=== PATIENT | female | born 1975 | race Caucasian/White ===

== ENCOUNTER 2017-10-15 15:00 | Emergency (ER) | payer OTHER ==
[2017-10-15 17:10] LABS: AUTOMATED NEUTROPHIL # 6.3 TH/MM3 (1.8-7.7); BASOPHIL % 0.3 % (0.0-2.0); EOSINOPHIL % 0.4 % (0.0-4.0); HEMATOCRIT 41.8 % (35.0-46.0); HEMO FLAGS DIFF FINAL; HEMOGLOBIN 14.2 GM/DL (11.6-15.3); LYMPH % 24.2 % (9.0-44.0); LYMPHOCYTE # 2.3 TH/MM3 (1.0-4.8); MEAN CELL VOLUME 91.8 FL (80.0-100.0); MEAN CORPUSCULAR HEMOGLOBIN 31.3 PG (27.0-34.0); MEAN CORPUSCULAR HGB CONC 34.1 % (32.0-36.0); MEAN PLATELET VOLUME 8.1 FL (7.0-11.0); MONO % 7.8 % (0.0-8.0); MONOCYTE # 0.7 TH/MM3 (0-0.9); NEUT % 67.3 % (16.0-70.0); PLATELET COUNT 287 TH/MM3 (150-450); RED BLOOD COUNT 4.55 MIL/MM3 (4.00-5.30); RED CELL DISTRIBUTION WIDTH 13.1 % (11.6-17.2); WHITE BLOOD COUNT 9.4 TH/MM3 (4.0-11.0)
[2017-10-15 17:17] LABS: BACTERIA, URINE MOD /hpf; BILIRUBIN, URINE NEG (NEG); BLOOD, URINE NEG (NEG); COMMENT (UR) CULTURE INDICATED; CULTURE IF INDICATED CULTURE INDICATED; GLUCOSE,URINE 150 mg/dL (NEG); KETONE, URINE NEG (NEG); NITRITE,URINE NEG (NEG); SQUAMOUS EPITHELIAL CELL URINE 1 /hpf (0-5); URINE COLOR LIGHT-YELLOW (YELLW/STRAW); URINE LEUKOCYTE ESTERASE NEG (NEG)
[2017-10-15 17:35] LABS: ALBUMIN 4.1 GM/DL (3.4-5.0); ANION GAP 7 MEQ/L (5-15); AST (GOT) 12 U/L (15-37); BICARBONATE 26.4 MEQ/L (21.0-32.0); BLOOD UREA NITROGEN 6 MG/DL (7-18); CALCIUM 9.4 MG/DL (8.5-10.1); CHLORIDE 103 MEQ/L (98-107); CREATININE 0.69 MG/DL (0.50-1.00); GLOMERULAR FILTRATION RATE 94 ML/MIN (>89); GLUCOSE,RANDOM 75 MG/DL (74-106); POTASSIUM 3.5 MEQ/L (3.5-5.1); SODIUM (NA) 136 MEQ/L (136-145)
[2017-10-15 17:36] LABS: ALT (GPT) 25 U/L (10-53)
[2017-10-15 17:53] LABS: ALKALINE PHOSPHATASE 102 U/L (45-117); BETA HCG QUANT 15566 MIU/ML (0-5); TOTAL BILIRUBIN ADULT 0.3 MG/DL (0.2-1.0); TOTAL PROTEIN 8.2 GM/DL (6.4-8.2)
[2017-10-15] MEDS: ACETAMINOPHEN 325 MG TAB PO (22:15)
[2017-10-15] MEDS: NITROFURANTOIN MONOHYD MACROCR 100 MG CAP PO (22:30)
[2017-10-16 01:22] LABS: CHLAMYDIA PCR NOT DETECTED (NOT DETECT); NEISSERIA PCR NOT DETECTED (NOT DETECT)
== END 2017-10-16 02:17 | disposition home or self-care (01) ==
LOC: NEPD 10-16 02:17
DX: O23.41 Unspecified infection of urinary tract in pregnancy, first trimester (principal); O26.891 Other specified pregnancy related conditions, first trimester; M54.5 Low back pain; V49.60XA Unspecified car occupant injured in collision with unspecified motor vehicles in traffic accident, initial encounter; Y92.410 Unspecified street and highway as the place of occurrence of the external cause; Z3A.01 Less than 8 weeks gestation of pregnancy
CPT/HCPCS: 76801; 80053; 81001; 84702; 84703; 85025; 87086; 87210; 87491; 87591; 99284-25

== ENCOUNTER 2017-11-10 17:36 | Emergency (ER) | payer MEDICAID ==
[~2017-11-10] VITALS: Ht 170.2 cm; Wt 75.0 kg
[~2017-11-10 17:36] MED LIST: MACR100C2 PO
[2017-11-10 17:38] VITALS: BP 147/80; PULSE 97; RESP 14; TEMP 97.9; O2SAT 98
--- NOTE | 2017-11-10 19:20 | PD ---
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 Patient reports that started this morning as light brown spotting, progressively getting worse where she is currently passing clots. Patient states that she is 9 weeks . She is . For this is not received any care yet. She reports cramping in her lower abdomen that is consistent with menstrual cramps. She also reports urinary frequency. She denies any vaginal discharge, nausea, vomiting, abdominal pain, back pain. Symptom onset was gradual, there are no alleviating factors, there are no aggravating factors. The pain is intermittent in nature again consistent with a menstrual cycle. Patient is Amharic speaking, she has a female family member with her. They declined formal interpretation services. [facility] Past Medical History Medical History: Denies Significant Hx ?: LMP: 09/04/18 : 4 Para: 3 Past Surgical History Section: No Social History Alcohol Use: No Tobacco Use: No Substance Use: No Allergies-Medications (Allergen,Severity, Reaction): Coded Allergies: No Known Allergies (Unverified , 10/15/17) Reported Meds & Prescriptions Reported Meds & Active Scripts Active Review of Systems Except as stated in HPI: all other systems reviewed are Neg Genitourinary: Positive: Frequency, Pelvic Pain (cramping), Vaginal Bleeding Physical Exam Narrative GENERAL: Well-developed, well-nourished, alert female. Presenting in no acute distress. SKIN: Warm and dry. HEAD: Atraumatic. Normocephalic. EYES: Pupils equal and round. No scleral icterus. No injection or drainage. ENT: No nasal bleeding or discharge. Mucous membranes pink and moist. NECK: Trachea midline. No JVD. CARDIOVASCULAR: Regular rate and rhythm. RESPIRATORY: No accessory muscle use. Clear to auscultation. Breath sounds equal bilaterally. GASTROINTESTINAL: Abdomen soft, non-tender, nondistended. Hepatic and splenic margins not palpable. GENITOURINARY: Normal external genitalia without lesions or erythema. Vaginal vault with blood, no drainage. Cervical os appears closed, there is bloody drainage . No cervical motion tenderness. Uterus nontender and nonenlarged. Bilateral adnexa nontender without masses. MUSCULOSKELETAL: Extremities without clubbing, cyanosis, or edema. No obvious deformities. NEUROLOGICAL: Awake and alert. No obvious cranial nerve deficits. Motor grossly within normal limits. Five out of 5 muscle strength in the arms and legs. Normal speech. PSYCHIATRIC: Appropriate mood and affect; insight and judgment normal. Data Data Last Documented VS Vital Signs Date Time Temp Pulse Resp B/P (MAP) Pulse Ox O2 Delivery O2 Flow Rate FiO2 11/10/17 22:25 11/10/17 18:10 68 18 11/10/17 17:38 97.9 98 Orders Orders Beta Hcg (Quant/Titer) (11/10/17 18:49) Complete Blood Count With Diff (11/10/17 18:49) Comprehensive Metabolic Panel (11/10/17 18:49) Gc And Chlamydia Pcr (11/10/17 18:49) Complete Rh (11/10/17 18:49) Us Pelvis (Ques Pr/Ect)W Trans (11/10/17 ) Wet Prep Profile (11/10/17 18:49) Urinalysis - C+S If Indicated (11/10/17 18:49) Ed Discharge Order (11/10/17 22:16) Mandatory Outpatient Referral (11/10/17 22:25) Labs Laboratory Tests Test 11/10/17 19:15 White Blood Count 8.3 TH/MM3 Red Blood Count 4.07 MIL/MM3 Hemoglobin 12.8 GM/DL Hematocrit 36.8 % Mean Corpuscular Volume 90.6 FL Mean Corpuscular Hemoglobin 31.5 PG Mean Corpuscular Hemoglobin Concent 34.8 % Red Cell Distribution Width 12.7 % Platelet Count 278 TH/MM3 Mean Platelet Volume 7.7 FL Neutrophils (%) (Auto) 63.7 % Lymphocytes (%) (Auto) 27.4 % Monocytes (%) (Auto) 7.3 % Eosinophils (%) (Auto) 1.2 % Basophils (%) (Auto) 0.4 % Neutrophils # (Auto) 5.3 TH/MM3 Lymphocytes # (Auto) 2.3 TH/MM3 Monocytes # (Auto) 0.6 TH/MM3 Eosinophils # (Auto) 0.1 TH/MM3 Basophils # (Auto) 0.0 TH/MM3 CBC Comment DIFF FINAL Differential Comment Urine Color LIGHT-YELLOW Urine Turbidity CLEAR Urine pH 6.5 Urine Specific [place] 1.005 Urine Protein NEG mg/dL Urine Glucose (UA) NEG mg/dL Urine Ketones NEG mg/dL Urine Occult Blood MOD Urine Nitrite NEG Urine Bilirubin NEG Urine Urobilinogen LESS THAN 2.0 MG/DL Urine Leukocyte Esterase NEG Urine RBC 1 /hpf Urine WBC 1 /hpf Urine Squamous Epithelial Cells 3 /hpf Urine Bacteria OCC /hpf Microscopic Urinalysis Comment CULT NOT INDICATED Clue Cells (Wet Prep) NONE SEEN Vaginal Trichomonas (Wet Prep) NONE SEEN Vaginal Yeast (Wet Prep) NONE SEEN Blood Urea Nitrogen 13 MG/DL Creatinine 0.66 MG/DL Random Glucose 101 MG/DL Total Protein 7.0 GM/DL Albumin 3.4 GM/DL Calcium Level 8.9 MG/DL Alkaline Phosphatase 92 U/L Aspartate Amino Transf (AST/SGOT) 14 U/L Alanine Aminotransferase (ALT/SGPT) 22 U/L Total Bilirubin 0.1 MG/DL Sodium Level 138 MEQ/L Potassium Level 3.6 MEQ/L Chloride Level 105 MEQ/L Carbon Dioxide Level 27.0 MEQ/L Anion Gap 6 MEQ/L Estimat Glomerular Filtration Rate 99 ML/MIN Human Chorionic Gonadotropin, Quant 4881 MIU/ML MDM Medical Decision Making Medical Screen Exam Complete: Yes Emergency Medical Condition: Yes Interpretation(s) Laboratory Tests Test 11/10/17 19:15 White Blood Count 8.3 TH/MM3 Red Blood Count 4.07 MIL/MM3 Hemoglobin 12.8 GM/DL Hematocrit 36.8 % Mean Corpuscular Volume 90.6 FL Mean Corpuscular Hemoglobin 31.5 PG Mean Corpuscular Hemoglobin Concent 34.8 % Red Cell Distribution Width 12.7 % Platelet Count 278 TH/MM3 Mean Platelet Volume 7.7 FL Neutrophils (%) (Auto) 63.7 % Lymphocytes (%) (Auto) 27.4 % Monocytes (%) (Auto) 7.3 % Eosinophils (%) (Auto) 1.2 % Basophils (%) (Auto) 0.4 % Neutrophils # (Auto) 5.3 TH/MM3 Lymphocytes # (Auto) 2.3 TH/MM3 Monocytes # (Auto) 0.6 TH/MM3 Eosinophils # (Auto) 0.1 TH/MM3 Basophils # (Auto) 0.0 TH/MM3 CBC Comment DIFF FINAL Differential Comment Urine Color LIGHT-YELLOW Urine Turbidity CLEAR Urine pH 6.5 Urine Specific [place] 1.005 Urine Protein NEG mg/dL Urine Glucose (UA) NEG mg/dL Urine Ketones NEG mg/dL Urine Occult Blood MOD Urine Nitrite NEG Urine Bilirubin NEG Urine Urobilinogen LESS THAN 2.0 MG/DL Urine Leukocyte Esterase NEG Urine RBC 1 /hpf Urine WBC 1 /hpf Urine Squamous Epithelial Cells 3 /hpf Urine Bacteria OCC /hpf Microscopic Urinalysis Comment CULT NOT INDICATED Clue Cells (Wet Prep) NONE SEEN Vaginal Trichomonas (Wet Prep) NONE SEEN Vaginal Yeast (Wet Prep) NONE SEEN Blood Urea Nitrogen 13 MG/DL Creatinine 0.66 MG/DL Random Glucose 101 MG/DL Total Protein 7.0 GM/DL Albumin 3.4 GM/DL Calcium Level 8.9 MG/DL Alkaline Phosphatase 92 U/L Aspartate Amino Transf (AST/SGOT) 14 U/L Alanine Aminotransferase (ALT/SGPT) 22 U/L Total Bilirubin 0.1 MG/DL Sodium Level 138 MEQ/L Potassium Level 3.6 MEQ/L Chloride Level 105 MEQ/L Carbon Dioxide Level 27.0 MEQ/L Anion Gap 6 MEQ/L Estimat Glomerular Filtration Rate 99 ML/MIN Human Chorionic Gonadotropin, Quant 4881 MIU/ML Vital Signs Date Time Temp Pulse Resp B/P (MAP) Pulse Ox O2 Delivery O2 Flow Rate FiO2 11/10/17 18:10 68 18 11/10/17 17:38 97.9 97 14 147/80 (102) 98 Differential Diagnosis Threatened versus miscarriage versus UTI versus STD versus ectopic versus other Narrative Course Patient is a 42-year-old female presenting for evaluation of vaginal bleeding during . Urine test is positive, patient's vital signs are stable. Labs and ultrasound ordered and pending. Labs reviewed, previous hCG level on 10/15/17 was 8[address]70, today is 4881 CBC is unremarkable Urinalysis shows moderate occult blood, not consistent with urinary tract infection likely vaginal source. Wet prep is negative GC/chlamydia is pending the patient was negative in October. Ultrasound shows demise, when compared to the ultrasound in October 2017, which showed an intrauterine of 5 weeks, 5 days with heart rate at 106 beats. Again the previous ultrasound study showed a heartbeat, this ultrasound shows intrauterine gestational sac and a pole is present there is no evidence of a heartbeat. He also notes a cyst on the left ovary measuring 3.1 cm and a separate area measuring 2.7 cm. Patient was advised on findings. Discussed with my attending physician. Patient is to follow-up with applications administrator. Additionally she can return to emergency department for any new or worsening symptoms. Patient is stable for discharge. Mandatory referral for gynecology has been made. Patient's questions were answered via daughter's interpretation. Again they declined formal interpretation services. They were advised to return to emergency department immediately for any new or worsening symptoms. Diagnosis Primary Impression: Incomplete miscarriage Referrals: [facility] [employer] Patient Instructions: General Instructions, Miscarriage (ED) Additional Instructions: Follow up with your applications administrator Return to emergency department immediately for any new or worsening symptoms Med/Other Pt SpecificInfo: No Change to Meds Disposition: 01 DISCHARGE HOME Condition: Stable Sonia Escobar Nov 10, 2017 19:20
[2017-11-10 19:32] LABS: AUTOMATED NEUTROPHIL # 5.3 TH/MM3 (1.8-7.7); BASOPHIL % 0.4 % (0.0-2.0); EOSINOPHIL # 0.1 TH/MM3 (0-0.4); EOSINOPHIL % 1.2 % (0.0-4.0); HEMATOCRIT 36.8 % (35.0-46.0); HEMOGLOBIN 12.8 GM/DL (11.6-15.3); LYMPH % 27.4 % (9.0-44.0); LYMPHOCYTE # 2.3 TH/MM3 (1.0-4.8); MEAN CELL VOLUME 90.6 FL (80.0-100.0); MEAN CORPUSCULAR HEMOGLOBIN 31.5 PG (27.0-34.0); MEAN CORPUSCULAR HGB CONC 34.8 % (32.0-36.0); MEAN PLATELET VOLUME 7.7 FL (7.0-11.0); MONO % 7.3 % (0.0-8.0); MONOCYTE # 0.6 TH/MM3 (0-0.9); NEUT % 63.7 % (16.0-70.0); PLATELET COUNT 278 TH/MM3 (150-450); RED BLOOD COUNT 4.07 MIL/MM3 (4.00-5.30); RED CELL DISTRIBUTION WIDTH 12.7 % (11.6-17.2); WHITE BLOOD COUNT 8.3 TH/MM3 (4.0-11.0)
[2017-11-10 19:40] LABS: ALBUMIN 3.4 GM/DL (3.4-5.0); AST (GOT) 14 U/L (15-37); BLOOD UREA NITROGEN 13 MG/DL (7-18); CALCIUM 8.9 MG/DL (8.5-10.1); CHLORIDE 105 MEQ/L (98-107); CREATININE 0.66 MG/DL (0.50-1.00); GLOMERULAR FILTRATION RATE 99 ML/MIN (>89); GLUCOSE,RANDOM 101 MG/DL (74-106); SODIUM (NA) 138 MEQ/L (136-145)
[2017-11-10 19:41] LABS: ALT (GPT) 22 U/L (10-53); BACTERIA, URINE OCC /hpf; BILIRUBIN, URINE NEG (NEG); BLOOD, URINE MOD (NEG); GLUCOSE,URINE NEG (NEG); KETONE, URINE NEG (NEG); NITRITE,URINE NEG (NEG); PH, URINE 6.5 (5.0-8.5); SQUAMOUS EPITHELIAL CELL URINE 3 /hpf (0-5); URINE COLOR LIGHT-YELLOW (YELLW/STRAW); URINE LEUKOCYTE ESTERASE NEG (NEG)
[2017-11-10 19:57] LABS: ALKALINE PHOSPHATASE 92 U/L (45-117); TOTAL BILIRUBIN ADULT 0.1 MG/DL (0.2-1.0)
--- NOTE | 2017-11-10 22:09 | RADRPT ---
EXAM DATE/TIME: 11/10/2017 20:54 [place] COMPARISON: US PELVIS, PREG (SGL/1ST GESTATION), October 16, 2017, 1:03. INDICATIONS : Pelvic pain and bleeding with . LAB(S): Beta-hC MEDICAL HISTORY : . SURGICAL HISTORY : None. ENCOUNTER: Initial ACUITY: 1 day PAIN SCORE: 2/10 LOCATION: Bilateral pelvis MEASUREMENTS: UTERUS: 11.8 x 7.7 x 6.8 cm ENDOMETRIAL STRIPE: 12 mm RIGHT OVARY: 3.2 x 2.3 x 1.4 cm LEFT OVARY: 4.8 x 3.3 x 3.0 cm FREE FLUID: No CROWN RUMP LENGTH: 1.2 cm = 7 WKS 2 DAYS FHR: Non visualized. BPM FINDINGS: Intrauterine gestational sac and a pole is present without evidence for heartbeat. There is a c yst in the left ovary measures 3.1 cm and a separate area measures 2.7 cm. There is no free fluid. Th e prior study demonstrated heart beat. CONCLUSION: demise. Chetan Villanueva MD on November 10, 2017 at 22:05 Board Certified Radiologist. This report was verified electronically.
== END 2017-11-10 22:40 | disposition home or self-care (01) ==
LOC: NEPD 17:36
DX: O03.4 Incomplete spontaneous abortion without complication (principal); O34.81 Maternal care for other abnormalities of pelvic organs, first trimester; N83.202 Unspecified ovarian cyst, left side; Z3A.01 Less than 8 weeks gestation of pregnancy; Z34.91 Encounter for supervision of normal pregnancy, unspecified, first trimester
CPT/HCPCS: 76700; 76817; 80053; 81001; 84702; 85025; 86901; 87210; 87491; 87591; 99284